=== PATIENT | female | born 1980 | race African-American/Black ===

== ENCOUNTER 2020-01-28 14:27 | Inpatient (IN) | payer OTHER ==
[2020-01-28] MEDS ORDERED: ACETAMINOPHEN 1000 MG/100 ML VIAL (NON FORMULARY) IVPB ONE (17:35)
[2020-01-28] MEDS ORDERED: ACETAMINOPHEN INJECTION 100 ML IVPB ONE (17:38)
[2020-01-28] MEDS ORDERED: CEFTRIAXONE 1,000 MG in DEXTROSE 5%-WATER - 50 ML IVPB ONE (20:45)
[2020-01-28] MEDS ORDERED: SODIUM CHLORIDE 1,000 ML IV SCH ×2 (20:45→23:45)
[2020-01-28] MEDS ORDERED: morphine CARPU-JECT 4 MG/1 ML DISP.SYRIN IVPUSH ONE (20:51)
[2020-01-28] MEDS ORDERED: morphine SULFATE 4 MG/ML VIAL ONE (22:10)
[2020-01-28] MEDS ORDERED: CEFTRIAXONE 1 GM/50 ML BAG ONE (22:11)
[2020-01-28 22:22] LABS: BASO % 0.5 % (0-2.0); HEMATOCRIT 41.9 % (32.4-45.2); HEMOGLOBIN 13.8 GM/dL (10.7-15.3); LYMPH % 8.8 % (8-40); MCH 30.3 pg (25.7-33.7); MCHC 32.8 g/dl (32.0-36.0); MEAN CELL VOLUME 92.4 fl (80-96); MEAN PLT VOLUME 8.8 fl (7.5-11.1); MONO % 10.6 % (3.8-10.2); NEUT % 80.1 % (42.8-82.8); PLATELET COUNT 234 K/MM3 (134-434); RBC 4.54 M/mm3 (3.60-5.2); RDW 13.2 % (11.6-15.6); WHITE BLOOD COUNT 14.7 K/mm3 (4.0-10.0)
[2020-01-28 22:33] LABS: INR 1.23 (0.83-1.09)
[2020-01-28 22:48] LABS: POTASSIUM 3.6 mmol/L (3.5-5.1)
[2020-01-28 22:50] LABS: CALCIUM 9.1 mg/dL (8.5-10.1)
[2020-01-28 22:51] LABS: ALBUMIN 3.4 g/dl (3.4-5.0); BLOOD UREA NITROGEN 6.6 mg/dL (7-18)
[2020-01-28 22:54] LABS: CREATININE 0.7 mg/dL (0.55-1.3)
[2020-01-28 22:56] LABS: BILIRUBIN,TOTAL 0.5 mg/dL (0.2-1)
[2020-01-29] MEDS ORDERED: ACETAMINOPHEN INJECTION 100 ML IVPB ONE ×2 (00:35→13:40)
[2020-01-29] MEDS ORDERED: MORPHINE SULFATE 2 MG/ML VIAL ONE (01:08)
[2020-01-29] MEDS: morphine CARPU-JECT 2 MG/1 ML DISP.SYRIN IM SCH ×3 (01:10→11:56)
[2020-01-29] MEDS: ACETAMINOPHEN 1000 MG/100 ML VIAL (NON FORMULARY) IVPB SCH ×2 (01:12→06:45)
[2020-01-29 08:42] LABS: HEMATOCRIT 38.3 % (32.4-45.2); HEMOGLOBIN 12.4 GM/dL (10.7-15.3); MCH 30.2 pg (25.7-33.7); MCHC 32.4 g/dl (32.0-36.0); MEAN CELL VOLUME 93.2 fl (80-96); PLATELET COUNT 229 K/MM3 (134-434); RBC 4.11 M/mm3 (3.60-5.2); WHITE BLOOD COUNT 14.4 K/mm3 (4.0-10.0)
[2020-01-29 08:45] LABS: INR 1.28 (0.83-1.09); PROTHROMBIN TIME (PATIENT) 15.4 SEC (9.7-13.0)
[2020-01-29 08:48] LABS: ACTIVATED PTT 25.5 SECONDS (25.2-36.5)
[2020-01-29] MEDS ORDERED: FLU VACCINE (FLULAVAL) PF 60 MCG/0.5 ML SYRINGE 2020-2021 IM ONE (09:00)
[2020-01-29 09:01] LABS: POTASSIUM 3.7 mmol/L (3.5-5.1)
[2020-01-29 09:02] LABS: CALCIUM 8.4 mg/dL (8.5-10.1)
[2020-01-29 09:03] LABS: BLOOD UREA NITROGEN 4.8 mg/dL (7-18)
[2020-01-29 09:06] LABS: CREATININE 0.6 mg/dL (0.55-1.3); PHOSPHOROUS 2.8 mg/dL (2.5-4.9)
[2020-01-29] MEDS: MORPHINE SULFATE 2 MG/ML VIAL IVPUSH SCH ×2 (10:06→17:47)
[2020-01-29] MEDS ORDERED: CIPROFLOXACIN 200 MG/D5W 100 ML IVPB SCH ×3 (12:00→22:00)
[2020-01-29] MEDS ORDERED: SUCCINYLCHOLINE CHLORIDE 200 MG/10 ML SYRINGE ONE (12:05)
[2020-01-29] MEDS ORDERED: PROPOFOL 20 ML ONE (12:05)
[2020-01-29] MEDS ORDERED: MIDAZOLAM HCL 2 MG/2 ML SINGLE DOSE VIAL ONE (12:05)
[2020-01-29] MEDS ORDERED: CLINDAMYCIN PHOSPHATE 900 MG/6 ML VIAL IVPB ONE (12:22)
[2020-01-29] MEDS ORDERED: LIDOCAINE HCL 2% JELLY 10 ML CARTRIDGE RC ONE ×2 (13:00→13:30)
[2020-01-29] MEDS ORDERED: oxyCODONE HCL 5 MG TABLET PO PRN (13:42)
[2020-01-29] MEDS ORDERED: ONDANSETRON 4 MG/2 ML VIAL IVPUSH PRN ×2 (13:42→15:01)
[2020-01-29] MEDS ORDERED: LACTATED RINGERS SOLUTION 1,000 ML IV SCH ×2 (13:45→15:01)
[2020-01-29] MEDS ORDERED: LIDOCAINE HCL 2% JELLY (30 ML/TUBE) TP ONE ×2 (14:00→15:01)
[2020-01-29] MEDS: ACETAMINOPHEN 500 MG TABLET (FP) PO PRN (14:00)
[2020-01-29] MEDS ORDERED: morphine CARPU-JECT 2 MG/1 ML DISP.SYRIN SQ PRN ×2 (14:58→15:01)
[2020-01-29] MEDS ORDERED: POLYETHYLENE GLYCOL 3350 119 GM BTL PO PRN (15:17)
[2020-01-29] MEDS ORDERED: MORPHINE SULFATE 2 MG/ML VIAL SQ PRN (15:56)
[2020-01-29] MEDS: SODIUM CHLORIDE 1,000 ML IV SCH (16:45)
[2020-01-29] MEDS ORDERED: KETOROLAC TROMETHAMINE 15 MG/ML VIAL IVPUSH ONE (17:03)
[2020-01-29] MEDS ORDERED: IBUPROFEN 400 MG TABLET (FP) PO PRN (17:14)
[2020-01-29] MEDS ORDERED: AMOX TR/POT CLAV 875MG/125MG TABLETS (FP) PO SCH ×2 (17:30)
[2020-01-29] MEDS ORDERED: KETOROLAC TROMETHAMINE 30 MG/1 ML VIAL IVPUSH SCH (21:00)
[2020-01-29 21:59] LABS: BASO % 0.2 % (0-2.0); HEMATOCRIT 37.5 % (32.4-45.2); HEMOGLOBIN 12.4 GM/dL (10.7-15.3); LYMPH % 4.1 % (8-40); MCH 30.3 pg (25.7-33.7); MEAN PLT VOLUME 8.6 fl (7.5-11.1); MONO % 7.5 % (3.8-10.2); NEUT % 88.2 % (42.8-82.8); PLATELET COUNT 224 K/MM3 (134-434); RBC 4.08 M/mm3 (3.60-5.2); RDW 12.9 % (11.6-15.6); WHITE BLOOD COUNT 15.7 K/mm3 (4.0-10.0)
[2020-01-29] MEDS: SENNOSIDES 8.6MG TABLET (FP) PO SCH (22:10)
[2020-01-29] MEDS: oxyCODONE HCL 5 MG TABLET PO PRN (22:10)
[2020-01-29] MEDS ORDERED: ENOXAPARIN NA (PORCINE) 40 MG/0.4 ML DISP.SYRIN SQ ONE (23:01)
[2020-01-29] MEDS: CIPROFLOXACIN 200 MG/D5W 100 ML IVPB SCH (23:06)
[2020-01-30] MEDS: SODIUM CHLORIDE 1,000 ML IV SCH (01:36)
[2020-01-30] MEDS: oxyCODONE HCL 5 MG TABLET PO PRN ×5 (04:23→22:49)
[2020-01-30 08:14] LABS: HEMATOCRIT 36.6 % (32.4-45.2); HEMOGLOBIN 12.1 GM/dL (10.7-15.3); MCH 30.4 pg (25.7-33.7); MEAN PLT VOLUME 8.3 fl (7.5-11.1); PLATELET COUNT 221 K/MM3 (134-434); RBC 3.97 M/mm3 (3.60-5.2); RDW 13.1 % (11.6-15.6)
[2020-01-30 08:22] LABS: POTASSIUM 3.4 mmol/L (3.5-5.1)
[2020-01-30 08:29] LABS: ALBUMIN 2.5 g/dl (3.4-5.0); BLOOD UREA NITROGEN 3.6 mg/dL (7-18); MAGNESIUM 1.9 mg/dL (1.8-2.4)
[2020-01-30 08:32] LABS: CREATININE 0.6 mg/dL (0.55-1.3)
[2020-01-30 08:33] LABS: BILIRUBIN,TOTAL 0.5 mg/dL (0.2-1); PHOSPHOROUS 2.4 mg/dL (2.5-4.9)
[2020-01-30 08:34] LABS: TOT PROT 5.3 g/dl (6.4-8.2)
[2020-01-30 09:21] LABS: HIV INTERPRETATION NEGATIVE (NEGATIVE)
[2020-01-30] MEDS ORDERED: PT OWN MED DRAWER 7, Y5N ONE (09:38)
[2020-01-30 09:39] LABS: EPI CELLS >36 /uL (0-25.1); HYALINE CASTS 4 /uL (0-3.1); URINE APPEARANCE CLEAR; URINE BACTERIA 272 /uL (0-1359); URINE BILIRUBIN NEGATIVE (NEGATIVE); URINE COLOR YELLOW; URINE GLUCOSE (UA) NEGATIVE (NEGATIVE); URINE KETONE 3+ (NEGATIVE); URINE LEUK ESTERASE 2+ (NEGATIVE); URINE NITRITE NEGATIVE (NEGATIVE); URINE PROTEIN 1+ (NEGATIVE); URINE RBC 643 /uL (0-23.9); URINE WBC 97 /uL (0-25.8)
[2020-01-30] MEDS: PANTOPRAZOLE 40 MG TABLET PO SCH (09:51)
[2020-01-30] MEDS: CIPROFLOXACIN 200 MG/D5W 100 ML IVPB SCH (09:52)
[2020-01-30] MEDS ORDERED: PANTOPRAZOLE 40 MG TABLET PO SCH (10:00)
[2020-01-30] MEDS ORDERED: POTASSIUM CHLORIDE TABS 20 MEQ TABLET.ER (FP) PO ONE (10:30)
[2020-01-30] MEDS: ACETAMINOPHEN 500 MG TABLET (FP) PO PRN (10:36)
[2020-01-30] MEDS ORDERED: PIPERACILLIN/TAZOB 3.375 GM 3.375 GM in DEXTROSE 5%-WATER - 50 ML IVPB SCH (12:00)
[2020-01-30 12:06] VITALS: BMI 20.8
[2020-01-30] MEDS ORDERED: DEXTROSE 5%-WATER - 50 ML IVPB ONE ×3 (13:51→22:40)
[2020-01-30] MEDS ORDERED: PIPERACILLIN/TAZOBACTAM 3.375 GM VIAL IVPB ONE ×3 (13:51→22:40)
[2020-01-30] MEDS: SENNOSIDES 8.6MG TABLET (FP) PO SCH (22:46)
[2020-01-30] MEDS: PIPERACILLIN/TAZOB 3.375 GM 3.375 GM in DEXTROSE 5%-WATER - 50 ML IVPB SCH (22:47)
[2020-01-31] MEDS ORDERED: DEXTROSE 5%-WATER - 50 ML IVPB ONE ×3 (03:20→14:19)
[2020-01-31] MEDS ORDERED: PIPERACILLIN/TAZOBACTAM 3.375 GM VIAL IVPB ONE ×3 (03:20→14:18)
[2020-01-31] MEDS: PIPERACILLIN/TAZOB 3.375 GM 3.375 GM in DEXTROSE 5%-WATER - 50 ML IVPB SCH ×4 (03:23→15:26)
[2020-01-31] MEDS: oxyCODONE HCL 5 MG TABLET PO PRN ×2 (03:25→14:19)
[2020-01-31] MEDS: ACETAMINOPHEN 500 MG TABLET (FP) PO PRN (05:50)
[2020-01-31 08:14] LABS: BASO % 0.2 % (0-2.0); HEMATOCRIT 35.4 % (32.4-45.2); HEMOGLOBIN 11.8 GM/dL (10.7-15.3); LYMPH % 7.7 % (8-40); MCH 30.5 pg (25.7-33.7); MCHC 33.4 g/dl (32.0-36.0); MEAN CELL VOLUME 91.4 fl (80-96); MEAN PLT VOLUME 8.2 fl (7.5-11.1); NEUT % 82.1 % (42.8-82.8); PLATELET COUNT 237 K/MM3 (134-434); RBC 3.87 M/mm3 (3.60-5.2); RDW 12.9 % (11.6-15.6); WHITE BLOOD COUNT 14.8 K/mm3 (4.0-10.0)
[2020-01-31 08:38] LABS: POTASSIUM 3.4 mmol/L (3.5-5.1)
[2020-01-31 08:53] LABS: BLOOD UREA NITROGEN 3.2 mg/dL (7-18); CALCIUM 8.3 mg/dL (8.5-10.1); MAGNESIUM 1.9 mg/dL (1.8-2.4)
[2020-01-31 08:56] LABS: CREATININE 0.6 mg/dL (0.55-1.3)
[2020-01-31 08:57] LABS: PHOSPHOROUS 2.9 mg/dL (2.5-4.9)
[2020-01-31] MEDS: PANTOPRAZOLE 40 MG TABLET PO SCH (10:58)
[2020-01-31] MEDS: AMPICILLIN NA/SULBACTAM NA 3 GM in SODIUM CHLORIDE 100 ML IVPB SCH ×2 (17:24→21:07)
[2020-01-31] MEDS ORDERED: POTASSIUM CHLORIDE TABS 20 MEQ TABLET.ER (FP) PO ONE (18:11)
[2020-01-31] MEDS ORDERED: PT OWN MED DRAWER 7, Y5N ONE (20:57)
[2020-01-31] MEDS: SENNOSIDES 8.6MG TABLET (FP) PO SCH (21:07)
[2020-02-01] MEDS: oxyCODONE HCL 5 MG TABLET PO PRN (01:09)
[2020-02-01] MEDS ORDERED: PT OWN MED DRAWER 7, Y5N ONE ×2 (01:17→09:23)
[2020-02-01] MEDS: AMPICILLIN NA/SULBACTAM NA 3 GM in SODIUM CHLORIDE 100 ML IVPB SCH ×3 (03:19→15:43)
[2020-02-01 08:22] LABS: BASO % 0.8 % (0-2.0); EOS % 3.5 % (0-4.5); HEMATOCRIT 39.1 % (32.4-45.2); LYMPH % 19.7 % (8-40); MCH 30.6 pg (25.7-33.7); MCHC 33.3 g/dl (32.0-36.0); MEAN CELL VOLUME 91.9 fl (80-96); MEAN PLT VOLUME 8.3 fl (7.5-11.1); MONO % 11.5 % (3.8-10.2); NEUT % 64.5 % (42.8-82.8); PLATELET COUNT 326 K/MM3 (134-434); RBC 4.25 M/mm3 (3.60-5.2); RDW 13.4 % (11.6-15.6); WHITE BLOOD COUNT 7.9 K/mm3 (4.0-10.0)
[2020-02-01 08:54] LABS: POTASSIUM 4.1 mmol/L (3.5-5.1)
[2020-02-01 09:02] LABS: BLOOD UREA NITROGEN 4.9 mg/dL (7-18)
[2020-02-01 09:04] LABS: CREATININE 0.6 mg/dL (0.55-1.3)
[2020-02-01] MEDS: PANTOPRAZOLE 40 MG TABLET PO SCH (11:23)
[2020-02-01 14:47] VITALS: BP 109/71; PULSE 113; TEMP 98.6
== END 2020-02-01 18:03 | disposition home health service (06) | DRG 854 ==
LOC: JER 14:27 → JERFT 14:27 → JERBED 22:19 → J7W 01-29 05:41
PROVIDERS: ADMIT Internal Medicine; ATTEND Student in an Organized Health Care Education/Training Program
PROC: 0D9P0ZZ Drainage of Rectum, Open Approach (ICD-10-PCS; principal; 2020-01-29 11:30)
DX: A41.9 Sepsis, unspecified organism (principal); K61.1 Rectal abscess; K61.31 Horseshoe abscess; K21.9 Gastro-esophageal reflux disease without esophagitis; D72.829 Elevated white blood cell count, unspecified
CPT/HCPCS: 36415; 72193-TC; 80048; 80053; 81003; 83735; 84100; 84703; 85025; 85027; 85610; 85730; 86850; 86900; 86901; 87040; 87070; 87076; 87186; 87205; 87389; 93005; 93010; 94760; 99285-25; C9803; J0131; Q9967; U0003

== ENCOUNTER 2020-03-27 08:15 | Day surgery (SDC) | payer OTHER ==
[2020-03-25 11:43] VITALS: BMI 21.6
[2020-03-27 10:29] VITALS: PULSE 100
[2020-03-27 10:32] VITALS: BP 128/80; TEMP 98
== END 2020-03-27 10:31 | disposition home or self-care (01) ==
LOC: FASU-ENDO 08:15
PROVIDERS: ATTEND Internal Medicine Gastroenterology
PROC: 0DB78ZX Excision of Stomach, Pylorus, Via Natural or Artificial Opening Endoscopic, Diagnostic (ICD-10-PCS; 2020-03-27)
PROC: 0DB98ZX Excision of Duodenum, Via Natural or Artificial Opening Endoscopic, Diagnostic (ICD-10-PCS; principal; 2020-03-27 09:36)
DX: K21.9 Gastro-esophageal reflux disease without esophagitis (principal); K29.50 Unspecified chronic gastritis without bleeding; B96.81 Helicobacter pylori [H. pylori] as the cause of diseases classified elsewhere
CPT/HCPCS: 84703; 88305-TC; 88342-TC

== ENCOUNTER 2023-06-11 08:13 | Inpatient (IN) | payer OTHER ==
[2023-06-11] MEDS: ACETAMINOPHEN 500 MG TABLET (FP) PO ONE ×2 (09:31→09:54)
[2023-06-11] MEDS ORDERED: ACETAMINOPHEN 325 MG TABLET (FP) ONE ×2 (09:34→09:47)
[2023-06-11 10:39] LABS: BASO % 0.2 % (0-2.0); EOS % 0.1 % (0-4.5); HEMATOCRIT 40.5 % (32.4-45.2); HEMOGLOBIN 13.5 GM/dL (10.7-15.3); LYMPH % 6.5 % (8-40); MCH 30.5 pg (25.7-33.7); MCHC 33.2 g/dl (32.0-36.0); MEAN CELL VOLUME 91.9 fl (80-96); MEAN PLT VOLUME 8.2 fl (7.5-11.1); MONO % 12.4 % (3.8-10.2); NEUT % 80.8 % (42.8-82.8); PLATELET COUNT 230 10^3/uL (134-434); RBC 4.41 M/mm3 (3.60-5.2); RDW 13.6 % (11.6-15.6)
[2023-06-11 10:46] LABS: INR 1.2 (0.83-1.09); PROTHROMBIN TIME (PATIENT) 13.5 SEC (9.7-13.0)
[2023-06-11 10:48] LABS: ACTIVATED PTT 26.1 SECONDS (25.2-36.5)
[2023-06-11 11:16] LABS: POTASSIUM 4.1 mmol/L (3.5-5.1)
[2023-06-11 11:19] LABS: ALBUMIN 2.9 g/dl (3.4-5.0); BLOOD UREA NITROGEN 5.5 mg/dL (7-18)
[2023-06-11 11:22] LABS: CREATININE 0.8 mg/dL (0.55-1.3)
[2023-06-11 11:23] LABS: TOT PROT 6.7 g/dl (6.4-8.2)
[2023-06-11 11:24] LABS: BILIRUBIN,TOTAL 0.5 mg/dL (0.2-1)
[2023-06-11] MEDS ORDERED: morphine SULFATE 4 MG/ML VIAL ONE (11:40)
[2023-06-11] MEDS: morphine CARPU-JECT 4 MG/1 ML DISP.SYRIN IVPUSH ONE ×2 (12:20→14:17)
[2023-06-11] MEDS ORDERED: PIPERACILLIN/TAZOB 4.5 GM 4.5 GM/100 ML BAG IVPB ONE (14:38)
[2023-06-11] MEDS: PIPERACILLIN/TAZOB 4.5 GM 4.5 GM in DEXTROSE 5%-WATER 100 ML IVPB ONE (14:44)
[2023-06-11] MEDS: HYDROmorphone HCl 2 MG/ML VIAL IVPB PRN (17:34)
[2023-06-11] MEDS: ACETAMINOPHEN 1000 MG/100 ML BAG IVPB PRN (22:31)
[2023-06-11] MEDS: PIPERACILLIN/TAZOB 4.5 GM 4.5 GM in DEXTROSE 5%-WATER 100 ML IVPB SCH ×2 (22:42)
[2023-06-12 08:54] LABS: BASO % 0.3 % (0-2.0); EOS % 0.2 % (0-4.5); HEMATOCRIT 38.9 % (32.4-45.2); LYMPH % 8.2 % (8-40); MCH 30.5 pg (25.7-33.7); MCHC 33.4 g/dl (32.0-36.0); MEAN CELL VOLUME 91.5 fl (80-96); MEAN PLT VOLUME 8.4 fl (7.5-11.1); MONO % 11.4 % (3.8-10.2); NEUT % 79.9 % (42.8-82.8); PLATELET COUNT 239 10^3/uL (134-434); RBC 4.25 M/mm3 (3.60-5.2); RDW 13.7 % (11.6-15.6); WHITE BLOOD COUNT 13.2 K/mm3 (4.0-10.0)
[2023-06-12 09:13] LABS: POTASSIUM 3.4 mmol/L (3.5-5.1)
[2023-06-12 09:18] LABS: ALBUMIN 2.8 g/dl (3.4-5.0); BLOOD UREA NITROGEN 5.1 mg/dL (7-18); CALCIUM 9.2 mg/dL (8.5-10.1)
[2023-06-12 09:21] LABS: CREATININE 0.7 mg/dL (0.55-1.3)
[2023-06-12 09:22] LABS: BILIRUBIN,TOTAL 0.5 mg/dL (0.2-1); TOT PROT 6.1 g/dl (6.4-8.2)
[2023-06-12] MEDS: HYDROmorphone HCl 2 MG/ML VIAL IVPB PRN (10:13)
[2023-06-12] MEDS ORDERED: PROPOFOL 20 ML ONE (14:44)
[2023-06-12] MEDS ORDERED: MIDAZOLAM HCL 2 MG/2 ML SINGLE DOSE VIAL ONE (14:44)
[2023-06-12] MEDS ORDERED: LIDOCAINE HCL/PF 2% SDV 5ML VIAL ONE (14:44)
[2023-06-12] MEDS ORDERED: FENTANYL CITRATE/PF 50 MCG/ML VIAL ONE ×2 (14:44→15:25)
[2023-06-12] MEDS ORDERED: ONDANSETRON 4 MG/2 ML VIAL ONE (15:07)
[2023-06-12] MEDS ORDERED: KETOROLAC TROMETHAMINE 30 MG/1 ML VIAL ONE (15:07)
[2023-06-12] MEDS ORDERED: DEXAMETHASONE SOD PHOSPHATE 4 MG/1 ML VIAL ONE (15:07)
[2023-06-12] MEDS ORDERED: PROMETHAZINE HCL 25 MG/1 ML VIAL IVPB PRN (15:11)
[2023-06-12] MEDS ORDERED: ONDANSETRON 4 MG/2 ML VIAL IVPUSH PRN (15:11)
[2023-06-12] MEDS ORDERED: BUPIVACAINE HCL/PF 0.25% (2.5MG/ML) 10 ML VIAL ONE (15:32)
[2023-06-12] MEDS: BUPIVACAINE HCL/PF 2.5 MG/ML - 30 ML VIAL IJ ONE ×2 (15:35)
[2023-06-12] MEDS: ACETAMINOPHEN 1000 MG/100 ML BAG IVPB ONE (15:50)
[2023-06-12] MEDS ORDERED: ACETAMINOPHEN INJECTION 100 ML IVPB ONE (16:10)
[2023-06-12] MEDS: LACTATED RINGERS SOLUTION 1,000 ML IV SCH (17:04)
[2023-06-12] MEDS: PIPERACILLIN/TAZOB 4.5 GM 4.5 GM in DEXTROSE 5%-WATER 100 ML IVPB SCH (21:25)
[2023-06-12] MEDS: oxyCODONE HCL 5 MG TABLET PO PRN (23:04)
[2023-06-13] MEDS: LACTATED RINGERS SOLUTION 1,000 ML IV SCH (04:50)
[2023-06-13 10:16] LABS: BASO % 0.1 % (0-2.0); HEMATOCRIT 38.8 % (32.4-45.2); HEMOGLOBIN 13.2 GM/dL (10.7-15.3); LYMPH % 5.5 % (8-40); MCH 30.7 pg (25.7-33.7); MEAN CELL VOLUME 90.2 fl (80-96); MEAN PLT VOLUME 8.3 fl (7.5-11.1); MONO % 4.9 % (3.8-10.2); NEUT % 89.5 % (42.8-82.8); PLATELET COUNT 285 10^3/uL (134-434); RDW 14.1 % (11.6-15.6)
[2023-06-13 10:23] LABS: POTASSIUM 3.4 mmol/L (3.5-5.1)
[2023-06-13 10:29] LABS: ALBUMIN 2.7 g/dl (3.4-5.0); BLOOD UREA NITROGEN 8.1 mg/dL (7-18); CALCIUM 9.1 mg/dL (8.5-10.1)
[2023-06-13 10:32] LABS: CREATININE 0.7 mg/dL (0.55-1.3)
[2023-06-13 10:34] LABS: BILIRUBIN,TOTAL 0.4 mg/dL (0.2-1)
[2023-06-13] MEDS: POTASSIUM CHLORIDE ORAL LIQUID 20 MEQ/15 ML PO ONE (16:44)
[2023-06-13] MEDS ORDERED: METOCLOPRAMIDE HCL 10 MG TABLET (FP) PO PRN (18:41)
[2023-06-14] MEDS: HYDROmorphone HCl 2 MG/ML VIAL IVPB PRN (01:53)
[2023-06-14 07:06] LABS: HEMATOCRIT 37.1 % (32.4-45.2); HEMOGLOBIN 12.2 GM/dL (10.7-15.3); MCH 30.4 pg (25.7-33.7); MCHC 32.9 g/dl (32.0-36.0); MEAN CELL VOLUME 92.3 fl (80-96); MEAN PLT VOLUME 7.6 fl (7.5-11.1); PLATELET COUNT 272 10^3/uL (134-434); RBC 4.02 M/mm3 (3.60-5.2); RDW 13.9 % (11.6-15.6); WHITE BLOOD COUNT 10.5 K/mm3 (4.0-10.0)
[2023-06-14 07:29] LABS: POTASSIUM 3.4 mmol/L (3.5-5.1)
[2023-06-14 07:31] LABS: CALCIUM 8.5 mg/dL (8.5-10.1)
[2023-06-14 07:32] LABS: ALBUMIN 2.3 g/dl (3.4-5.0)
[2023-06-14 07:35] LABS: CREATININE 0.7 mg/dL (0.55-1.3)
[2023-06-14 07:37] LABS: BILIRUBIN,TOTAL 0.3 mg/dL (0.2-1); TOT PROT 5.2 g/dl (6.4-8.2)
[2023-06-14] MEDS: PANTOPRAZOLE 40 MG TABLET PO SCH (08:58)
[2023-06-14] MEDS ORDERED: PANTOPRAZOLE 40 MG TABLET PO SCH (10:00)
[2023-06-14] MEDS: SUCRALFATE 1 GM TABLET (FP) PO SCH (11:10)
[2023-06-14] MEDS: POTASSIUM CHLORIDE ORAL LIQUID 20 MEQ/15 ML PO ONE ×2 (11:11→14:48)
[2023-06-14] MEDS ORDERED: SUCRALFATE 1 GM TABLET (FP) PO SCH (12:00)
[2023-06-14] MEDS: METOCLOPRAMIDE HCL INJECTION 10 MG/2 ML VIAL IVPUSH PRN (12:36)
[2023-06-14 14:45] VITALS: BP 129/67; PULSE 97; RESP 18; TEMP 97.5
== END 2023-06-14 16:40 | disposition home or self-care (01) | DRG 346 ==
LOC: JER 08:13 → JERBED 15:22 → J6S 16:34 → OBSVTOIN 06-13 14:52
PROVIDERS: ATTEND Internal Medicine
PROC: 0D9P0ZZ Drainage of Rectum, Open Approach (ICD-10-PCS; principal; 2023-06-13)
DX: K61.1 Rectal abscess (principal); K21.9 Gastro-esophageal reflux disease without esophagitis; E87.6 Hypokalemia; R10.13 Epigastric pain
CPT/HCPCS: 36415; 72193-TC; 80053; 83036; 84703; 85025; 85027; 85610; 85730; 87070; 87076; 87186; 87205; 94760; 99285-25; G0378; J0131; Q9967